=== PATIENT | male | born 1990 ===

== ENCOUNTER 2020-05-13 10:29 | Observation (INO) ==
[2020-05-13] MEDS ORDERED: 0.9 % SODIUM CHLORIDE 1,000 ML IV ONE (11:07)
[2020-05-13] MEDS ORDERED: PIPERACILLIN SODIUM/TAZOBACTAM 3.375 GM in DEXTROSE 5% IN WATER 50 ML IV ONE ×2 (11:07→17:30)
[2020-05-13] MEDS ORDERED: ACETAMINOPHEN 325 MG TABLET PO PRN (11:24)
[2020-05-13] MEDS ORDERED: HYDROmorphone 0.5 MG/0.5 ML SYRINGE IV PRN (11:24)
[2020-05-13] MEDS ORDERED: ONDANSETRON 4 MG/2 ML VIAL IV PRN ×2 (11:24→14:09)
--- NOTE | 2020-05-13 11:24 | Emergency Department Note ---
Skin/Abscess/FB HPI General Chief complaint: Skin/Abscess/Foreign Body Stated complaint: Infection to buttocks Time Seen by Provider: 05/13/20 10:51 Source: patient and family Mode of arrival: ambulatory Limitations: no limitations History of Present Illness HPI Narrative: Narrative: 30-year-old male patient referred to the emergency department via his primary care provider with chief complaint of perirectal abscess and possible surgical consultation. Patient mentions that the abscess is been developing since Sunday (05/08). With each passing day the rectal area became more tender and swollen. Initially he thought he had a hemorrhoid and tried OTC Preparation H without relief. He is performed several warm sitz baths with some relief. He was evaluated by the nurse practitioner at his primary care provider's office and found to have a draining abscess to his perirectal area. A review of those laboratory studies done show WBC is 22 with a left shift. Patient has had some undulating chills. He mentions decreased appetite and some nausea. Upon arrival, patient admits to exquisite 10++/10 pain to his rectal area. ROS: Denies fever or sweats. Denies headaches, tinnitus, or vision changes. Denies runny nose, sinus congestion, or cough. Denies shortness of breath. Denies retrosternal chest pain or palpitations. Denies abdominal pain, nausea, vomiting, or diarrhea. Admits to some constipation. Denies dysuria, hematuria, urinary frequency, or urinary urgency. Denies generalized or focal weakness. Related Data Home Medications Medication Instructions Recorded Confirmed No Known Home Meds 05/13/20 05/13/20 Allergies Allergy/AdvReac Type Severity Reaction Status Date / Time No Known Drug Allergies Allergy Verified 05/13/20 10:30 Review of Systems ROS ROS Narrative: Narrative: All systems ED: reviewed and negative except as stated. PFSH Narrative Patient History Narrative: Narrative: Medical/Surgical/Family History All Active Problems (Updated 05/13/20 @ 11:24 by Jonah Spence PA-C) Abscess, perirectal (Acute) Social History Smoking Status: Current every day smoker Exam Narrative Narrative: Narrative: General Limitations: no limitations General appearance: other (Well-developed, well-nourished, 30-year-old male patient sitting upright on the emergency room gurney obviously very uncomfortable.) Head Head: atraumatic and normocephalic Eye Eye: Present normal appearance, PERRL and EOMI; Absent scleral icterus and conjunctival injection ENT ENT: Present normal oropharynx and mucous membranes moist Neck Neck: Present trachea midline; Absent lymphadenopathy Chest Chest: Present symmetric chest wall rise Respiratory Respiratory: Present normal lung sounds bilaterally; Absent respiratory distress, wheezes, stridor, accessory muscle use and prolonged expiratory phase Cardiovascular Cardiovascular: Present regular rate and normal rhythm; Absent systolic murmur and diastolic murmur Adbominal Abdominal: Present soft; Absent distention, tenderness, guarding, rebound, rigidity, organomegaly and mass Rectal Rectal: Present mass (External abscess to the left side of the rectal opening measuring approximately 3 cm x 2 cm. Actively draining purulent drainage. No active bleeding. Area is exquisitely tender to palpation.) and tenderness Extremities Extremities: Present normal inspection, full ROM and normal capillary refill Back Back: Present normal inspection and full ROM; Absent tenderness Neurological Neurological: Present alert and oriented X3 Psychiatric Psychiatric: Present normal affect and normal mood Skin Skin: Present warm, dry, normal color and other (Perirectal abscess as mentioned above.) Course Course Course Narrative: Patient has obvious draining perirectal abscess. A wound culture swab was obtained of the drainage. Afterward I was able to express considerable amounts of purulent drainage. Next, I consulted with her general surgeon (Dr. Panchal) about next Epson treatment. At this time Dr. Panchal requested the patient be admitted to observation. He recommended IV Zosyn. He also recommended repeating some laboratory studies and that he would follow patient this afternoon. Knowing this, I discussed the admission with the patient who verbalized understanding. Observation holding orders were placed by myself. Patient was given Dilaudid 0.5 mg IVP in conjunction with the IV antibiotics. Patient also given normal saline 1000 mL as a bolus. Patient has remained stable throughout entire time the emergency department. He is being admitted to observation under the care of our general surgeon (Dr. Panchal. All further treatment decisions, modalities, and ultimate patient disposition will be carried out by Dr. Panchal. Vital Signs Vital signs: Vital Signs Temperature 97.4 F 05/13/20 10:30 Pulse Rate 91 H 05/13/20 10:30 Respiratory Rate 16 05/13/20 10:30 Blood Pressure 132/87 05/13/20 10:30 Pulse Oximetry (%) 95 05/13/20 10:30 Temperature 97.4 F 05/13/20 10:30 Pulse Rate 79 05/13/20 12:12 Respiratory Rate 16 05/13/20 12:12 Blood Pressure 123/84 05/13/20 12:12 Pulse Oximetry (%) 98 05/13/20 11:41 MDM MDM Narrative Medical decision making narrative: Narrative: Lab Data Result diagrams: 05/13/20 11:31 Discharge Plan Patient/Caregiver Discharge Instructions Pt seen by COMPRESSOR OPERATOR PORTABLE/PA only: Yes Clinical Impression: Abscess, perirectal Patient Disposition: Xfer As Outpt/Obs ([facility]) Condition: Good Follow up with: No,PCP [Primary Care Provider] - Prescriptions: No Action No Known Home Meds RF: 0
[2020-05-13] MEDS ORDERED: PIPERACILLIN SODIUM/TAZOBACTAM 3.375 GM in DEXTROSE 5% IN WATER 50 ML IV SCH (11:30)
[2020-05-13] MEDS: HYDROmorphone 0.5 MG/0.5 ML SYRINGE IV PRN ×2 (11:43→13:09)
[2020-05-13 12:29] LABS: INR 1.1 (0.9-1.1); Prothrombin Time 14.3 sec (11.9-14.5)
[2020-05-13 12:58] LABS: ALT/SGPT 22 U/l (0-40); AST/SGOT 15 U/l (0-37); Albumin 4.5 gm/dL (3.2-5.2); Albumin/Globulin Ratio 1.3 (1.0-2.3); Alkaline Phosphatase 69 U/L (39-117); Bilirubin,Direct 0.3 mg/dL (0.0-0.3); Blood Urea Nitrogen 15 mg/dl (6-20); Calcium 9.7 mg/dl (8.6-10.4); Carbon Dioxide 22 mmol/L (22-30); Chloride 101 mmol/L (96-108); Globulin 3.5 gm/dL (2.2-3.7); Glomerular Filtration Rate 88; Glucose 99 mg/dL (70-105); Lactate Dehydrogenase 208 U/L (94-250); Phosphorous 3.9 mg/dL (2.7-4.5); Triglycerides 71 mg/dl (<150); Uric Acid 7.5 mg/dL (2.5-8.0)
[2020-05-13] MEDS: 0.9 % SODIUM CHLORIDE 1,000 ML IV SCH ×2 (13:00→20:46)
[2020-05-13] MEDS ORDERED: 0.9 % SODIUM CHLORIDE 10 ML SYRINGE IV SCH (14:00)
--- NOTE | 2020-05-13 14:57 | General Surg History&Physical ---
HPI History of Present Illness Patient information: Note initiated : 05/13/20 at 2:55 pm Service Date, if different from initiated Date: [] Patient: Theo Fernandes 30 y/o M admitted on 05/13/20 for Infection to buttocks. Chief Complaint: [] Chief complaint: perirectal abscess History of present illness: Mr. Fernandes is a 30 year old M admitted with perirectal abscess. He had symptoms of mild anal discomfort on Sunday of this past week. He tried some nyuv-dwr-euqyddg medications without improvement. By Sunday he was having severe shooting pains with movement. Yesterday he felt better but noted that he was having fevers. He was seen in the emergency room and noted to have a large perirectal abscess and is admitted. He will have antibiotics and I will schedule him for wide excision with drainage tomorrow. Review of Systems All systems: reviewed and no additional remarkable complaints except as stated PFSH PFSH Social History smoking status: Current every day smoker MEDS/ALLERGIES Home Medications and Allergies Home Medications Medication Instructions Recorded Confirmed Type No Known Home Meds 05/13/20 05/13/20 History Allergies Allergy/AdvReac Type Severity Reaction Status Date / Time No Known Drug Allergies Allergy Verified 05/13/20 10:30 Physical Examination Vital Signs Vital signs: Temp Pulse Resp BP Pulse Ox 98.1 F 79 16 128/81 96 05/13/20 13:00 05/13/20 12:52 05/13/20 13:00 05/13/20 13:00 05/13/20 13:00 General physical appearance General physical exam: well developed, well nourished, moderate distress and moderate pain Eyes Eye exam: PERRL and normal ocular movement ENT ENT exam: normal pinna, normal nares, normal mucosa, no hearing loss and no congestion Head Head exam IM: Present atraumatic, normal inspection and normocephalic Neck Neck exam: no masses, no bruits, trachea midline, no lymphadenopathy and no ve nous distension Cardiovascular Cardiovascular exam IM: Present normal rate and rhythm, RRR, +S1 and +S2; Absent bradycardia, JVD and tachycardia Respiratory Respiratory exam: normal expansion, normal respiratory effort, clear to percussion and clear to auscultation Abdomen Abdomen: Present soft, non tender, tender and bowel sounds Rectum Rectum: Present other (tender mass left pararectal space) Integumentary Integumentary: Present no rash, no growths, no abnormal pigmentation and other Neurologic Neurologic: Present normal coordination and normal sensation Musculoskeletal Musculoskeletal: Present normal gait and normal posture Psychiatric Psychiatric: Present oriented to time, oriented to person, oriented to place, speech is normal and memory intact Results Labs Result diagrams: 05/13/20 14:30 05/13/20 11:31 Labs: Diabetes panel 05/13/20 Range/Units 11:31 Sodium 139 (133-145) mmol/L Potassium 3.8 (3.3-5.1) mmol/L Chloride 101 (96-108) mmol/L Carbon Dioxide 22 (22-30) mmol/L BUN 15 (6-20) mg/dl Creatinine 1.1 (0.7-1.2) mg/dl Glucose 99 (70-105) mg/dL Calcium 9.7 (8.6-10.4) mg/dl AST 15 (0-37) U/l ALT 22 (0-40) U/l Alkaline Phosphatase 69 (39-117) U/L Total Protein 8.0 (5.9-8.4) gm/dL Albumin 4.5 (3.2-5.2) gm/dL Triglycerides 71 (<150) mg/dl Calcium panel 05/13/20 Range/Units 11:31 Calcium 9.7 (8.6-10.4) mg/dl Phosphorus 3.9 (2.7-4.5) mg/dL Albumin 4.5 (3.2-5.2) gm/dL Pituitary panel 05/13/20 Range/Units 11:31 Sodium 139 (133-145) mmol/L Potassium 3.8 (3.3-5.1) mmol/L Chloride 101 (96-108) mmol/L Carbon Dioxide 22 (22-30) mmol/L BUN 15 (6-20) mg/dl Creatinine 1.1 (0.7-1.2) mg/dl Glucose 99 (70-105) mg/dL Calcium 9.7 (8.6-10.4) mg/dl Adrenal panel 05/13/20 Range/Units 11:31 Sodium 139 (133-145) mmol/L Potassium 3.8 (3.3-5.1) mmol/L Chloride 101 (96-108) mmol/L Carbon Dioxide 22 (22-30) mmol/L BUN 15 (6-20) mg/dl Creatinine 1.1 (0.7-1.2) mg/dl Glucose 99 (70-105) mg/dL Calcium 9.7 (8.6-10.4) mg/dl Total Bilirubin 1.0 (0.0-1.0) mg/dL AST 15 (0-37) U/l ALT 22 (0-40) U/l Alkaline Phosphatase 69 (39-117) U/L Total Protein 8.0 (5.9-8.4) gm/dL Albumin 4.5 (3.2-5.2) gm/dL All other labs normal. A/P Assessment and plan (1) Abscess, perirectal: Status: Acute Narrative A/P Narrative: patient is admitted and is counseled for incision and drainage of perirectal abscess He'll be treated with Zosyn tonight He is scheduled for drainage under anesthesia tomorrow morning Time Spent With Patient Time: Total time spent is greater than 50% in coordination of care (as documented) at patient's floor/unit and/or counseling patient: Total time spent with greater than 50% in coordination of care (as documented) at patient's floor/unit and/or counseling patient:: 25 - 35 minutes
[2020-05-13 15:32] LABS: Basophils # (Auto) 0.07 K/mcL (0.00-0.30); Basophils % (Auto) 0.3 % (0.0-2.0); Eosinophils # (Auto) 0.12 K/mcL (0.00-0.70); Eosinophils % (Auto) 0.6 % (0.0-7.0); Granulocytes % (Auto) 74.7 % (38.0-78.0); Hematocrit 42.9 % (40.1-51.0); Hemoglobin 14.3 g/dL (13.7-17.5); Lymphocytes # (Auto) 2.67 K/mcL (1.50-4.80); Lymphocytes % (Auto) 13.3 % (15.5-49.0); Mean Cell Volume 90.5 fL (80.0-100.0); Mean Corpuscular HGB Conc 33.3 g/dL (31.0-36.0); Mean Platelet Volume 11.3 fL (7.4-10.4); Monocytes # (Auto) 2.24 K/mcL (0.10-0.90); Monocytes % (Auto) 11.1 % (1.0-12.0); Platelet Count 229 K/mcL (140-440); RBC 4.74 M/mcL (4.63-6.08); Red Cell Distribution Width 12.6 % (11.5-14.5); WBC 20.1 K/mcL (4.50-11.00)
[2020-05-13 15:56] LABS: ALT/SGPT 19 U/l (0-40); AST/SGOT 12 U/l (0-37); Albumin 3.8 gm/dL (3.2-5.2); Albumin/Globulin Ratio 1.2 (1.0-2.3); Alkaline Phosphatase 62 U/L (39-117); Bilirubin,Direct 0.3 mg/dL (0.0-0.3); Blood Urea Nitrogen 15 mg/dl (6-20); Calcium 8.8 mg/dl (8.6-10.4); Carbon Dioxide 24 mmol/L (22-30); Chloride 102 mmol/L (96-108); Globulin 3.2 gm/dL (2.2-3.7); Glomerular Filtration Rate 88; Glucose 94 mg/dL (70-105); Lactate Dehydrogenase 186 U/L (94-250); Triglycerides 78 mg/dl (<150); Uric Acid 6.5 mg/dL (2.5-8.0)
[2020-05-13] MEDS: HYDROmorphone 1 MG/ML SYRINGE IV PRN ×2 (17:37→20:45)
[2020-05-13] MEDS: PIPERACILLIN SODIUM/TAZOBACTAM 3.375 GM in DEXTROSE 5% IN WATER 50 ML IV SCH ×2 (17:42→23:04)
[2020-05-13] MEDS: ACETAMINOPHEN 1,000 MG/100 ML BOTTLE IV SCH ×2 (18:35→23:47)
[2020-05-13] MEDS: 0.9 % SODIUM CHLORIDE 10 ML SYRINGE IV SCH (20:37)
[2020-05-13] MEDS: DOCUSATE SODIUM 100 MG CAPSULE PO SCH (20:46)
[2020-05-13] MEDS ORDERED: ZOLPIDEM 5 MG TABLET PO PRN (21:00)
[2020-05-13] MEDS ORDERED: SENNOSIDES 1 TABLET PO SCH ×2 (21:00)
[2020-05-13] MEDS ORDERED: DOCUSATE SODIUM 100 MG CAPSULE PO SCH (21:00)
[2020-05-14 02:43] LABS: Appearance,Urine CLEAR; Bilirubin,Urine NEG (NEG); Color,Urine YELLOW; Culture Indicated,Urine NO; Glucose,Urine (UA) NEGATIVE (NEG); Ketones,Urine NEG (NEG); Leukocyte Esterase,Urine NEG /uL (NEG); Nitrate,Urine NEG (NEG); Protein,Urine NEG (NEG); Specific Gravity,Urine 1.012 (1.000-1.035); Urine Blood NEG mg/dL (<0.03)
[2020-05-14] MEDS: HYDROmorphone 1 MG/ML SYRINGE IV PRN ×6 (04:11→22:57)
[2020-05-14] MEDS: 0.9 % SODIUM CHLORIDE 1,000 ML IV SCH ×4 (04:43→22:58)
[2020-05-14] MEDS: 0.9 % SODIUM CHLORIDE 10 ML SYRINGE IV SCH ×3 (04:53→22:58)
[2020-05-14] MEDS: ACETAMINOPHEN 1,000 MG/100 ML BOTTLE IV SCH ×2 (05:00→18:36)
[2020-05-14] MEDS ORDERED: SCOPOLAMINE 1 PATCH PATCH TOPICAL PRN ×2 (06:00→11:43)
[2020-05-14] MEDS ORDERED: IPRATROPIUM/ALBUTEROL 3 ML AMPUL.NEB NEB PRN ×4 (06:00→11:43)
[2020-05-14] MEDS: PIPERACILLIN SODIUM/TAZOBACTAM 3.375 GM in DEXTROSE 5% IN WATER 50 ML IV SCH ×3 (06:31→18:00)
[2020-05-14] MEDS: DOCUSATE SODIUM 100 MG CAPSULE PO SCH ×2 (07:15→22:56)
[2020-05-14] MEDS ORDERED: MIDAZOLAM 2 MG/2 ML VIAL IV ONE (09:42)
[2020-05-14] MEDS ORDERED: DEXAMETHASONE 10 MG/ML VIAL IV ONE (09:42)
[2020-05-14] MEDS ORDERED: fentaNYL 100 MCG/2 ML VIAL IV ONE (09:42)
[2020-05-14] MEDS ORDERED: GLYCOPYRROLATE 0.2 MG/ML VIAL IV ONE (09:42)
[2020-05-14] MEDS ORDERED: KETAMINE 100 MG/ML ML IV ONE (09:42)
[2020-05-14] MEDS ORDERED: PROPOFOL 200 MG/20 ML VIAL IV ONE (09:42)
[2020-05-14] MEDS ORDERED: LIDOCAINE HCL/PF 100 MG/5 ML SYRINGE IV ONE (09:42)
[2020-05-14] MEDS ORDERED: ONDANSETRON 4 MG/2 ML VIAL IV ONE (09:42)
[2020-05-14] MEDS ORDERED: ACETAMINOPHEN 1,000 MG/100 ML BOTTLE IV ONE (10:08)
[2020-05-14] MEDS ORDERED: MEPERIDINE 25 MG/ML SYRINGE IV PRN ×2 (10:08→11:43)
[2020-05-14] MEDS ORDERED: ONDANSETRON 4 MG/2 ML VIAL IV PRN ×2 (10:08→11:43)
[2020-05-14] MEDS ORDERED: KETOROLAC 30 MG/ML VIAL IV PRN ×2 (10:08→11:43)
[2020-05-14] MEDS ORDERED: LACTATED RINGERS 1,000 ML IV SCH ×2 (10:15→11:43)
--- NOTE | 2020-05-14 10:17 | Brief Operative Note ---
Brief Operative Note Date of procedure: 05/14/20 Pre-op diagnosis: perirectal abscess Post-op diagnosis: other (perirectal abscess) Procedure: excisional debridement of perirectal abscess Grafts/Implants: No Anesthesia: GETA Findings: large anterolateral perirectal abscess Complications: none Surgeon: Rasheed Panchal Estimated blood loss (cc): 5 Specimens Removed/Pathology: none sent Condition: stable Disposition: PACU
[2020-05-14] MEDS: fentaNYL 100 MCG/2 ML VIAL IV PRN ×6 (10:25→11:10)
[2020-05-14] MEDS ORDERED: fentaNYL 100 MCG/2 ML VIAL IV PRN (11:43)
[2020-05-14] MEDS ORDERED: PIPERACILLIN SODIUM/TAZOBACTAM 3.375 GM in DEXTROSE 5% IN WATER 50 ML IV ONE (11:43)
[2020-05-14] MEDS ORDERED: ZOLPIDEM 5 MG TABLET PO PRN (11:43)
[2020-05-14] MEDS: ONDANSETRON 4 MG/2 ML VIAL IV PRN ×2 (13:08→22:56)
[2020-05-14] MEDS ORDERED: SENNOSIDES 1 TABLET PO SCH (21:00)
[2020-05-15] MEDS: ACETAMINOPHEN 1,000 MG/100 ML BOTTLE IV SCH ×3 (00:47→13:13)
[2020-05-15] MEDS: PIPERACILLIN SODIUM/TAZOBACTAM 3.375 GM in DEXTROSE 5% IN WATER 50 ML IV SCH ×3 (01:22→12:20)
[2020-05-15] MEDS: HYDROmorphone 1 MG/ML SYRINGE IV PRN ×5 (01:22→10:58)
[2020-05-15] MEDS: 0.9 % SODIUM CHLORIDE 1,000 ML IV SCH ×2 (03:23→16:42)
[2020-05-15] MEDS: 0.9 % SODIUM CHLORIDE 10 ML SYRINGE IV SCH ×2 (05:52→16:39)
[2020-05-15] MEDS: DOCUSATE SODIUM 100 MG CAPSULE PO SCH (08:41)
[2020-05-15] MEDS: ONDANSETRON 4 MG/2 ML VIAL IV PRN (08:56)
[2020-05-15] MEDS ORDERED: LORazepam 1 MG TABLET PO PRN (13:45)
--- NOTE | 2020-05-15 13:45 | General Surgery Progress Note ---
SUBJECTIVE Subjective Patient information: Note initiated : 05/15/20 at 1:43 pm Service Date, if different from initiated Date: [] Patient: Theo Fernandes 30 y/o M admitted on 05/14/20 for Infection to buttocks. Chief Complaint: [] Principal diagnosis: perirectal abscess Interval history: Narrative:patient has a moderate amount of pain. There is minimal drainage. The induration is significantly improved. Initial cultures are growing out beta strep and gram-negative bacilli. Constitutional Vitals: Vital Signs Temp Pulse Resp BP Pulse Ox 98.7 F 58 L 16 123/75 93 05/15/20 12:00 05/15/20 12:00 05/15/20 12:00 05/15/20 12:00 05/15/20 12:00 Period Temp Pulse Resp BP Sys/Portillo Pulse Ox Last 24 Hr 97.5 F-98.8 F 46-62 14-16 111-137/62-85 91-97 Intake and Output 05/14/20 05/15/20 05/15/20 21:59 05:59 13:59 Intake Total 1590 650 600 Output Total 775 1850 700 Balance 815 -1200 -100 Weight 223 lb Intake & Output: Intake & Output 05/14/20 05/15/20 05/15/20 21:59 05:59 13:59 Intake Total 1590 650 600 Output Total 775 1850 700 Balance 815 -1200 -100 Weight 223 lb Intake: IV 1050 50 100 Sodium Chloride 0.9% 1,000 ml @ 1000 125 mls/hr IV .Q8H MARCOS Rx#: [id number] Zosyn 3.375 gm In Dextrose 5% 50 50 100 in Water 50 ml @ 100 mls/hr IV Q6H MARCOS Rx#:[id number] Oral 540 600 500 Output: Void Amount 775 1850 700 Other: Meal Dinner Lunch Percent of Meal Consumed 100% 100% Feeding Ability Independent Independent Urine Appearance Clear Clear Urine Color Dark Yellow Pale Urine Odor Normal Normal Rectal Additional comments: moderate amount of swelling; drainage is decreased. A/P Time Spent With Patient Time: Total time spent is greater than 50% in coordination of care (as documented) at patient's floor/unit and/or counseling patient:
--- NOTE | 2020-05-15 14:20 | Discharge Summary ---
Discharge Provider Provider Patient information: Note initiated : 05/15/20 at 2:16 pm Service Date, if different from initiated Date: [] Patient: Theo Fernandes 30 y/o M admitted on 05/14/20 for Infection to buttocks. Chief Complaint: [] Date of admission: 05/14/20 10: Discharge date: 05/13/20 Primary care physician: PCP No Admitting clinician: Rasheed Panchal Attending physician on admission: Rasheed Panchal Consults: 05/13/20 Consult to Physician [CONS] Stat Comment: Consulting Provider: Rasheed Panchal Reason For Exam: Physician to Consult Attending physician on discharge: Rasheed Panchal Discharging clinician: Rasheed Panchal COURSE Hospital Course Discharge diagnosis: perirectal abscess Reason for admission: perirectal abscess Procedures: I&D of perirectal abscess 14 May 2020 Time Spent with Patient Time attestation: Total time spent providing and/or coordinating discharge services: Physical Examination Vital Signs Vital signs: Temp Pulse Resp BP Pulse Ox 98.7 F 58 L 16 123/75 93 05/15/20 12:00 05/15/20 12:00 05/15/20 12:00 05/15/20 12:00 05/15/20 12:00 General physical appearance General physical exam: well developed, well nourished, moderate distress and moderate pain Neck Neck exam: no masses, no bruits, trachea midline, no lymphadenopathy and no venous distension Respiratory Respiratory exam: normal expansion, normal respiratory effort, clear to percussion and clear to auscultation Abdomen Abdomen: Present soft, non tender, tender and bowel sounds Rectum Rectum: Present other (tender mass left pararectal space) Integumentary Integumentary: Present no rash, no growths, no abnormal pigmentation and other Neurologic Neurologic: Present normal coordination and normal sensation Musculoskeletal Musculoskeletal: Present normal gait and normal posture Psychiatric Psychiatric: Present oriented to time, oriented to person, oriented to place, speech is normal and memory intact Discharge Plan Patient/Caregiver Discharge Instructions Activity: increase activity as tolerated Diet: Regular Diet Instructions: Ciprofloxacin (By mouth), Oxycodone/Acetaminophen (By mouth), Abscess Incision and Drainage (DC) Activity Restrictions/Additional Instructions: Increase Activity as tolerated. Regular Diet Call Dr Panchal's office on Sunday to set up a surgery follow up Call the office with any questions This discharge packet is provided to you to help keep you informed about your care. We want to ensure you get everything you need when you go home. You will also be receiving a call from us in a few days to follow up with you and see how you are doing since your discharge. This gives us a chance to listen to any concerns you maybe experiencing since you were discharged or any additional needs you may have, as well as providing us feedback on your care experience. We strive to always provide excellent care and thank you for your feedback and for choosing [facility].Increase activity as tolerated. Prescriptions: New ciprofloxacin HCl [ciprofloxacin HCl] 500 MG tablet 500 mg PO BID Qty: 40 RF: 0 No Action hydrocodone-acetaminophen 5-325 mg tablet 1 tab PO Q6H PRN (Reason: pain) Qty: 60 RF: 0 Follow Up Plan Follow up with: Rasheed Panchal MD [Physician] - 05/20/20 (Contact office to verify date and time) No,PCP [Primary Care Provider] - Patient Disposition: Home, Self-Care Prognosis: Good Rehab Potential: Good I certify that the patient requires SNF services: No Overall status at discharge: patient is progressing back to baseline Discharge Date/Time: 05/15/20 16:16 Discharge Orders: Discharge Order (Routine); Ordered 05/15/20 Ordered By: Rasheed Panchal Pending Pending Pending: Resuscitation Status Full Code Diet Regular Diet Start SunMay 14 1143 Acetaminophen (Ofirmev) 1,000 mg IV Q6 MARCOS; Protocol Last Admin: 05/15/20 13:13 Dose: 1,000 mg Documented by: Admin: 05/15/20 06:49 Dose: 1,000 mg Documented by: Admin: 05/15/20 00:47 Dose: 1,000 mg Documented by: [email or web address] Admin: 05/14/20 18:36 Dose: 1,000 mg Documented by: [email or web address] Docusate Sodium (Colace) 100 mg PO BID MARCOS Last Admin: 05/15/20 08:41 Dose: 100 mg Documented by: Admin: 05/14/20 22:56 Dose: 100 mg Documented by: LADI Hydromorphone HCl (Dilaudid) 1 mg IV Q2HP PRN; Protocol PRN Reason: Per Pain Protocol Last Admin: 05/15/20 10:58 Dose: 1 mg Documented by: Admin: 05/15/20 08:36 Dose: 1 mg Documented by: Admin: 05/15/20 05:51 Dose: 1 mg Documented by: Admin: 05/15/20 03:23 Dose: 1 mg Documented by: Admin: 05/15/20 01:22 Dose: 1 mg Documented by: Admin: 05/14/20 22:57 Dose: 1 mg Documented by: Admin: 05/14/20 18:01 Dose: 1 mg Documented by: Admin: 05/14/20 15:31 Dose: 1 mg Documented by: Admin: 05/14/20 13:00 Dose: 1 mg Documented by: LUCHO Sodium Chloride (Sodium Chloride 0.9%) 1,000 mls @ 125 mls/hr IV .Q8H MARCOS Last Admin: 05/15/20 03:23 Dose: 125 mls/hr Documented by: Admin: 05/14/20 22:58 Dose: Not Given Documented by: Infusion: 05/14/20 20:46 Dose: 125 mls/hr Documented by: Admin: 05/14/20 12:46 Dose: 125 mls/hr Documented by: LUCHO Piperacillin Sod/Tazobactam (Sod 3.375 gm/ Dextrose) 50 mls @ 100 mls/hr IV Q6H [facility]; Protocol Last Infusion: 05/15/20 13:12 Dose: 0 mls/hr Documented by: Admin: 05/15/20 12:20 Dose: 100 mls/hr Documented by: Infusion: 05/15/20 06:25 Dose: 0 mls/hr Documented by: Admin: 05/15/20 05:51 Dose: 100 mls/hr Documented by: Infusion: 05/15/20 02:35 Dose: 0 mls/hr Documented by: Admin: 05/15/20 01:22 Dose: 100 mls/hr Documented by: Infusion: 05/14/20 18:30 Dose: 0 mls/hr Documented by: Admin: 05/14/20 18:00 Dose: 100 mls/hr Documented by: [email or web address] Infusion: 05/14/20 13:30 Dose: 0 mls/hr Documented by: [email or web address] Admin: 05/14/20 12:45 Dose: 100 mls/hr Documented by: LUCHO Ondansetron HCl (Zofran) 4 mg IV Q6HP PRN PRN Reason: Nausea And Vomiting Last Admin: 05/15/20 08:56 Dose: 4 mg Documented by: Admin: 05/14/20 22:56 Dose: 4 mg Documented by: Admin: 05/14/20 13:08 Dose: 4 mg Documented by: LUCHO Senna (Senokot) 2 tab PO HS MARCOS Last Admin: 05/14/20 22:56 Dose: 2 tab Documented by: LADI Sodium Chloride (Saline Flush) 10 ml IV Q8 MARCOS Last Admin: 05/15/20 05:52 Dose: Not Given Documented by: Admin: 05/14/20 22:58 Dose: 10 ml Documented by: Admin: 05/14/20 13:10 Dose: Not Given Documented by: LUCHO Shift Summary 05/15/20 04:32 Shift Summary by Katie Crowley. Up ad uzair. Packing came out of abscess and is wearing pad with mesh underwear to keep in place. Diluadid Q2H to control pain also gets scheduled IV tylenol. Patient took shower last night. Uses urinal. Did not sleep much during the night. Will update at bedside. Initialized on 05/15/20 04:32 - END OF NOTE
== END 2020-05-15 16:16 | disposition home or self-care (01) ==
LOC: ED 10:29 → MEDSUR 10:29
PROVIDERS: ADMIT Family Medicine Adult Medicine; ATTEND Family Medicine Adult Medicine